=== PATIENT | female | born 1985 | race Caucasian/White ===

== ENCOUNTER 2017-11-05 14:11 | Emergency (ER) | payer OTHER ==
--- NOTE | 2017-11-05 14:38 | PDOC ---
Rapid Medical Evaluation Time Seen by Provider: 11/05/17 14:36 Medical Evaluation: Allergies Allergy/AdvReac Type Severity Reaction Status Date / Time No Known Allergies Allergy Verified 01/04/14 13:14 11/05/17 14:37 The patient presents with a chief complaint of: needlestick I have performed a brief in-person evaluation of this patient. Pertinent physical exam findings: vss, stable I have ordered the following: exposure labs, tdap The patient will proceed to the ED for further evaluation. 11/05/17 15:15
[2017-11-05 14:39] VITALS: BP 147/89; PULSE 95; TEMP 98.2; BMI 26.9
[2017-11-05] MEDS ORDERED: TETANUS AND DIPHTHERIA TOXOID 0.5 ML DISP.SYRIN IM ONE (14:39)
--- NOTE | 2017-11-05 15:30 | PDOC ---
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 pt states she is unsure of the HIV or hep status of the source patient but she is trying to find out. Pt has no pmhx. 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 Past History - Past Medical History Allergies/Adverse Reactions: Allergies Allergy/AdvReac Type Severity Reaction Status Date / Time No Known Allergies Allergy Verified 01/04/14 13:14 Home Medications: Ambulatory Orders NK [No Known Home Medication] 11/05/17 Asthma: No Cancer: No Cardiac Disorders: No COPD: No Diabetes: No HTN: No Seizures: No Thyroid Disease: No - Reproductive History (#): 4 Para: 0 Therapeutic (s) & number: Yes (3) - Immunization History Immunization Up to Date: Yes - Suicide/Smoking/Psychosocial Hx Smoking Status: Yes Smoking History: Never smoked Have you smoked in the past 12 months: No Number of Cigarettes Smoked Daily: 0 Hx Alcohol Use: No Drug/Substance Use Hx: No Hx Substance Use Treatment: No Review of Systems - Review of Systems Able to Perform ROS?: Yes Is the patient limited Setswana proficient: No Constitutional: No: Symptoms Reported Integumentary: Yes: Symptoms Reported *Physical Exam - Vital Signs Last Vital Signs Temp Pulse Resp BP Pulse Ox 98.2 F 95 H 18 147/89 95 11/05/17 14:37 11/05/17 14:37 11/05/17 14:37 11/05/17 14:37 11/05/17 14:37 - Physical Exam General Appearance: Yes: Nourished, Appropriately Dressed HEENT: positive: EOMI, GRUMEET Extremity: positive: Normal Capillary Refill, Normal Inspection, Normal Range of Motion Integumentary: positive: Normal Color, Dry, Warm, Other (right ring finger with superficial abrasion type needle stick no active bleeding, nv intact) Neurologic: positive: Fully Oriented, Alert, Normal Mood/Affect, Normal Response , Motor Strength 5/5 Post Exposure - ED Protocol - Exposure Treatment Washing/Decontamination: Soap/Water Source Patient HIV Status:: Unknown Is PEP indicated?: Yes Prophylaxis for HIV discussed?: Yes Prophylaxis given?: No Prophylaxis refused?: Yes Additional Treatment:: DT - Referrals Other Post Exposure pt. referral to PCP: Yes Medical Decision Making - Medical Decision Making 11/05/17 15:30 cc: accidnetal needle stick right ring finger at work from heparing syringe will draw baseline labs update tetanus pt refused PEP *DC/Admit/Observation/Transfer Diagnosis at time of Disposition: Needle stick injury of finger of right hand Qualifiers: Encounter type: initial encounter Qualified Code(s): S61.239A - Puncture wound without foreign body of unspecified finger without damage to nail, initial encounter - Discharge Dispostion Disposition: HOME Condition at time of disposition: Good - Referrals Referrals: Lorene Quiroz MD [Staff Physician] - - Patient Instructions Printed Discharge Instructions: How to Handle Body Fluid Exposure -- Non- Healthcare Worker (At Home, [facility]gi Additional Instructions: 11/05/17 1. As discussed, a screening test for the HIV virus was performed today. Your HIV test is Negative (normal). 2. As discussed, if you engaged in high risk-behavior in the three (3) months prior to this test, you could still potentially be at risk and you will need to be re-tested. 3. As discussed, avoid any high risk behavior (such as unprotected sex or needle-sharing) in the future to minimize the chances of nadeem HIV. follow withyour doctor or with the infectious disease doctor for follow up if any concerns you should have a repeat HIV test in 3 months with your primary care or at the [facility] (free, look up the website for times and locations) keep the needle stick area clean and dry soap and water - Post Discharge Activity Forms/Work/School Notes: Back to Work
[2017-11-05 16:13] LABS: ALBUMIN 3.9 g/dl (3.4-5.0); ALK PHOS 60 U/L (45-117); BILIRUBIN,DIRECT < 0.2 mg/dL (0.0-0.2); BILIRUBIN,TOTAL 0.4 mg/dL (0.2-1); SGOT/AST 12 U/L (15-37); SGPT/ALT 15 U/L (13-61); TOT PROT 7.6 g/dl (6.4-8.2)
== END 2017-11-05 18:27 | disposition home or self-care (01) ==
LOC: JERFT 14:11
PROC: 3E0234Z Introduction of Serum, Toxoid and Vaccine into Muscle, Percutaneous Approach (ICD-10-PCS; principal; 2017-11-05)
DX: Z77.21 Contact with and (suspected) exposure to potentially hazardous body fluids (principal); S61.234A Puncture wound without foreign body of right ring finger without damage to nail, initial encounter; W46.1XXA Contact with contaminated hypodermic needle, initial encounter; Y93.F9 Activity, other caregiving; Y92.098 Other place in other non-institutional residence as the place of occurrence of the external cause; Y99.0 Civilian activity done for income or pay
CPT/HCPCS: 36415; 80076; 86803; 87389; 99282-25